=== PATIENT | female | born 2000 | race Native Hawaiian/Other Pacific Islander ===

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

== ENCOUNTER 2021-03-18 14:23 | Outpatient (CLI) | payer OTHER | END 2021-03-18 21:31 | disposition home or self-care (01) | LOC: LABW 14:23 | PROVIDERS: ATTEND Nurse Practitioner Family | DX: C56.1 Malignant neoplasm of right ovary (principal) | CPT/HCPCS: 36415; 82105 ==

== ENCOUNTER 2021-08-28 01:15 | Emergency (ER) | payer OTHER ==
[~2021-08-28] VITALS: Ht 167.6 cm; Wt 97.1 kg
[2021-08-28 01:34] VITALS: BP 135/55; TEMP 99.1
== END 2021-08-28 02:16 | disposition home or self-care (01) ==
LOC: ED 01:15
DX: J02.9 Acute pharyngitis, unspecified (principal); H65.199 Other acute nonsuppurative otitis media, unspecified ear; J01.80 Other acute sinusitis
CPT/HCPCS: 96372; 99283; J0696; J1100

== ENCOUNTER 2023-06-16 21:35 | Emergency (ER) | payer OTHER ==
[~2023-06-16] VITALS: Ht 167.6 cm; Wt 104.3 kg
[2023-06-16 22:52] VITALS: BP 118/65
== END 2023-06-16 22:52 | disposition home or self-care (01) ==
LOC: ED 21:35
DX: L08.82 Omphalitis not of newborn (principal)
CPT/HCPCS: 99281